=== PATIENT | male | born 1970 | race Caucasian/White ===

== ENCOUNTER 2017-03-22 20:21 | Emergency (ER) | payer OTHER ==
[~2017-03-22] VITALS: Ht 175.3 cm; Wt 75.6 kg
[2017-03-22 20:23] VITALS: TEMP 37.4; Ht 175.3 cm; Wt 75.6 kg
[2017-03-22 22:10] LABS: BASO % 0.3 %; BASO ABS # 0.03 K/uL (0-0.2); COMPLETE YES; EOS % 1.3 %; HEMATOCRIT 40.5 % (42-52); IG% 0.2 %; LYMPH % 20.9 %; LYMPH ABS # 2.32 K/uL (1.2-3.4); MEAN CELL VOLUME 81.8 fL (80-100); MEAN CORPUSCULAR HEMOGLOBIN 28.5 pg (25-34); MEAN CORPUSCULAR HGB CONC 34.8 g/dl (32-36); MEAN PLATELET VOLUME 9.5 fL (7.4-10.4); MONO % 11.1 %; NEUT % 66.2 %; PLATELET COUNT 242 K/uL (130-400); RED BLOOD COUNT 4.95 M/uL (4.7-6.1); WHITE BLOOD COUNT 11.08 K/uL (4.8-10.8)
--- NOTE | 2017-03-22 22:16 | EMERGENCY ROOM VISIT NOTE ---
History First contact with patient: 21:34 Chief Complaint: OTHER COMPLAINT Stated Complaint: BUMPS ON BACK OF TONGUE/WHITE, LT ARM/CHEST PAIN History of Present Illness The patient is a 46 year old male who presents to the Emergency Room with complaints of left-sided chest pain for greater than 1 week. The patient states that he has had a dull throbbing pain in the left side of his chest for greater than 1 week. He has associated shortness of breath and pain in the left arm. He was seen at [facility] emergency department one week ago and had testing done which was all negative. He was told that he likely had a muscle strain. 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 He has been taking aspirin intermittently with some relief. He has difficulty sleeping due to the pain. He reports he does have a cough. He is a smoker. He has no cardiac history or history of hypertension or hyperlipidemia. He is not a diabetic. He states his mother had triple bypass surgery and her age. He denies any personal or family history of blood clots. He is healthy and does not have a primary care provider. He denies nausea, vomiting, abdominal pain, neck pain or fevers. He does report he has had some cold-like symptoms over the past several days. Review of Systems A complete 10 point review of systems was reviewed with the patient with pertinent positives and negatives as per history of present illness. All else were negative. Social History Smoking Status: Current Some Day Smoker Current/Historical Medications Scheduled Aspirin Effervescent (Cora-Gorham), 1 TAB PO PRN Azithromycin (Zithromax), 250 MG PO DAILY Methylprednisolone (Medrol Dosepak), 0 PO DAILY Multivitamins/Minerals (Mvi With Minerals), 1 TAB PO DAILY Physical Exam Vital Signs Date Time Temp Pulse Resp B/P Pulse Ox O2 Delivery O2 Flow Rate FiO2 03/22/17 23:23 100 18 130/73 96 Room Air 03/22/17 20:48 88 03/22/17 20:23 37.4 98 18 129/81 96 Room Air Physical Exam VITALS: Vitals are noted on the nurse's note and reviewed by myself. Vital signs stable. GENERAL: This is a 46-year-old male, in no acute distress, nondiaphoretic, well- developed well-nourished. SKIN: Capillary reflex less than 2 seconds. HEENT: Normocephalic. PERRLA. EOMI. Nares patent. Mucous membranes moist. Neck is supple without nuchal rigidity. HEART: Regular rate and rhythm without murmurs gallops or rubs. LUNGS: Clear to auscultation bilaterally without wheezes, rales or rhonchi. No retractions or accessory muscle use. MUSCULOSKELETAL: No reproducible chest pain on palpation. NEURO: Patient was alert and oriented to person place and time. Medical Decision & Procedures ER Provider Diagnostic Interpretation: SINGLE VIEW CHEST CLINICAL HISTORY: Atypical chest pain. FINDINGS: An AP, portable, upright chest radiograph is obtained. No prior studies are available for comparison at the time of dictation. The cardiomediastinal silhouette is unremarkable. The lungs are hyperinflated. No airspace consolidation, pleural effusion, or pneumothorax is seen. The bony thorax is grossly intact. IMPRESSION: No acute cardiopulmonary abnormality. Laboratory Results 03/22/17 22:00 Red Blood Count 4.95, Mean Corpuscular Volume 81.8, Mean Corpuscular Hemoglobin 28.5, Mean Corpuscular Hemoglobin Concent 34.8, Mean Platelet Volume 9.5, Neutrophils (%) (Auto) 66.2, Lymphocytes (%) (Auto) 20.9, Monocytes (%) (Auto) 11.1, Eosinophils (%) (Auto) 1.3, Basophils (%) (Auto) 0.3, Neutrophils # (Auto ) 7.34, Lymphocytes # (Auto) 2.32, Monocytes # (Auto) 1.23, Eosinophils # (Auto ) 0.14, Basophils # (Auto) 0.03 03/22/17 22:00 Test 03/22/17 22:00 03/22/17 22:06 White Blood Count 11.08 K/uL (4.8-10.8) Red Blood Count 4.95 M/uL (4.7-6.1) Hemoglobin 14.1 g/dL (14.0-18.0) Hematocrit 40.5 % (42-52) Mean Corpuscular Volume 81.8 fL (80-100) Mean Corpuscular Hemoglobin 28.5 pg (25-34) Mean Corpuscular Hemoglobin Concent 34.8 g/dl (32-36) Platelet Count 242 K/uL (130-400) Mean Platelet Volume 9.5 fL (7.4-10.4) Neutrophils (%) (Auto) 66.2 % Lymphocytes (%) (Auto) 20.9 % Monocytes (%) (Auto) 11.1 % Eosinophils (%) (Auto) 1.3 % Basophils (%) (Auto) 0.3 % Neutrophils # (Auto) 7.34 K/uL (1.4-6.5) Lymphocytes # (Auto) 2.32 K/uL (1.2-3.4) Monocytes # (Auto) 1.23 K/uL (0.11-0.59) Eosinophils # (Auto) 0.14 K/uL (0-0.5) Basophils # (Auto) 0.03 K/uL (0-0.2) RDW Standard Deviation 41.3 fL (36.4-46.3) RDW Coefficient of Variation 13.7 % (11.5-14.5) Immature Granulocyte % (Auto) 0.2 % Immature Granulocyte # (Auto) 0.02 K/uL (0.00-0.02) Anion Gap 7.0 mmol/L (3-11) Est Creatinine Clear Calc Drug Dose 118.9 ml/min Estimated GFR () 125.0 Estimated GFR (Non- 107.9 BUN/Creatinine Ratio 19.2 (10-20) Calcium Level 9.1 mg/dl (8.5-10.1) Total Bilirubin 0.5 mg/dl (0.2-1) Aspartate Amino Transf (AST/SGOT) 17 U/L (15-37) Alanine Aminotransferase (ALT/SGPT) 25 U/L (12-78) Alkaline Phosphatase 87 U/L (45-117) Total Creatine Kinase 148 U/L (39-308) Creatine Kinase MB 2.6 ng/ml (0.5-3.6) Creatine Kinase MB Ratio 1.8 (0-3.0) Total Protein 7.2 gm/dl (6.4-8.2) Albumin 3.5 gm/dl (3.4-5.0) Globulin 3.7 gm/dl (2.5-4.0) Albumin/Globulin Ratio 0.9 (0.9-2) Bedside D-Dimer 324 ng/mlFEU (0-450) Bedside Troponin I 0.000 ng/ml (0-0.045) Medications Administered Medications (Trade) Dose Ordered Sig/Aure Route Start Time Stop Time Status Last Admin Dose Admin Albuterol/ Ipratropium (Duoneb) 3 ml NOW STAT INH 03/22/17 22:37 03/22/17 22:38 DC 03/22/17 22:48 3 ML Albuterol (Ventolin Hfa Inhaler) 2 puffs NOW ONCE INH 03/22/17 23:45 03/22/17 23:46 DC 03/22/17 23:44 2 PUFFS Azithromycin (Zithromax Tab) 500 mg NOW ONCE PO 03/22/17 23:45 03/22/17 23:46 DC 03/22/17 23:44 500 MG ECG Indication: chest pain Rate (beats per minute): 84 Rhythm: normal sinus Findings: no acute ischemic change, no ectopy Comparison ECG Date: no prior available Medical Decision Differential diagnosis includes acute coronary syndrome, pulmonary embolism, pneumothorax, pericarditis, myocarditis, endocarditis, anxiety, musculoskeletal pain, GERD, costochondritis, pneumonia, among others. The patient is a 46-year-old male who presents today complaining of chest pain ongoing for greater than 1 week. Labs revealed a mild leukocytosis. No concerning anemia or electrolyte abnormalities. Cardiac biomarkers were negative. Chest x-ray was unremarkable. EKG showed no acute ischemic findings. The patient was given a DuoNeb treatment and stated that he felt much better after this. I feel he likely has an acute bronchitis which may be causing his chest pain as well. He does complain of some left shoulder pain. 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 He will be placed on a Z-Keegan and inhaler. Based on the patient's presentation and work up, I feel the patient is stable for outpatient treatment. The patient was educated to return to the emergency department for any worsening of their current condition or new/concerning symptoms. He will follow up with his primary care provider. Impression Primary Impression: Acute bronchitis Additional Impression: Left sided chest pain Departure Information Dispostion Home / Self-Care Condition GOOD Prescriptions Methylprednisolone (MEDROL DOSEPAK) 4 Mg Keegan 0 PO DAILY, #1 PKT Prov: Sienna Morse ., [place] 03/22/17 Azithromycin (Zithromax) 250 Mg Tab 250 MG PO DAILY for 4 Days, #4 TAB Prov: Sienna Morse PA-C 03/22/17 Referrals No Doctor, Assigned (PCP) Patient Instructions My [facility] Additional Instructions You have been prescribed a Medrol Dosepak. This is a steroid which will help decrease your inflammation. Take the medicine as prescribed. Take the ENTIRE 6 day course of the steroids. You were prescribed Zithromax to be taken daily for 4 days. This is an antibiotic. All antibiotics have the potential to cause diarrhea. Stop this medication and contact a medical provider if you were to develop any significant adverse side effects including: wheezing, shortness of breath, passing out, vomiting, or a diffuse rash. Always take antibiotics as directed and COMPLETE the ENTIRE course regardless of the improvement of your symptoms. Use the Ventolin inhaler as needed for cough/shortness of breath. Follow-up with your primary care provider as scheduled. For pain control, you can use the following [id number] medicines (if >12 yo): - Regular strength (325mg/tab) Tylenol (acetaminophen) 2 tabs every 4-6 hours as needed. Do not exceed 12 tablets in a 24 hour period. Avoid taking more than 4 grams (4000 mg) of Tylenol per day. This includes any other sources of acetaminophen you may take on a regular basis. - Regular strength (200 mg/tab) Advil (ibuprofen) 1-2 tabs every 4-6 hours as needed. Do not exceed a dose of 3200 mg per day. Return to the emergency room with worsening chest pain, worsening shortness of breath or any other new/concerning symptoms. Problem Qualifiers Primary Impression: Acute bronchitis Bronchitis organism: unspecified organism Qualified Codes: J20.9 - Acute bronchitis, unspecified
--- NOTE | 2017-03-22 22:27 | DIAGNOSTIC IMAGING REPORT ---
SINGLE VIEW CHEST CLINICAL HISTORY: Atypical chest pain. FINDINGS: An AP, portable, upright chest radiograph is obtained. No prior studies are available for comparison at the time of dictation. The cardiomediastinal silhouette is unremarkable. The lungs are hyperinflated. No airspace consolidation, pleural effusion, or pneumothorax is seen. The bony thorax is grossly intact. IMPRESSION: No acute cardiopulmonary abnormality. Electronically signed by: Matthew Chapa M.D. 03/22/2017 10:26 PM Dictated Date/Time: 03/22/2017 10:25 PM
[2017-03-22 22:30] LABS: BUN/CREATININE RATIO 19.2 (10-20); CREATININE 0.76 mg/dl (0.60-1.40)
[2017-03-22 22:35] LABS: ALB/GLOB RATIO 0.9 (0.9-2); CKMB/CK RATIO 1.8 (0-3.0)
[2017-03-22] MEDS ORDERED: ALBUT/IPRATROP 3MG/0.5MG NEB 3 ML VIAL INH STA (22:37)
[2017-03-22] MEDS ORDERED: ASPITAB71 PO (23:08)
[2017-03-22] MEDS ORDERED: MULT-513 PO (23:09)
[2017-03-22 23:17] LABS: CALCIUM 9.1 mg/dl (8.5-10.1)
[2017-03-22 23:23] VITALS: BP 130/73; PULSE 100; O2SAT 96
[2017-03-22] MEDS ORDERED: ALBUTEROL HFA 8 GM INHALER INH ONE (23:45)
[2017-03-22] MEDS ORDERED: AZITHROMYCIN 250 MG TAB PO ONE (23:45)
[2017-03-22] MEDS ORDERED: AZIT250T PO (23:51)
[2017-03-22] MEDS ORDERED: METH4PAK PO (23:51)
== END 2017-03-22 23:53 | disposition home or self-care (01) ==
LOC: C.EDB 20:23 → C.EDC 23:53
DX: J20.9 Acute bronchitis, unspecified (principal); F17.210 Nicotine dependence, cigarettes, uncomplicated; Z82.49 Family history of ischemic heart disease and other diseases of the circulatory system; Z79.899 Other long term (current) drug therapy

== ENCOUNTER → 2017-10-06 | Outpatient (CLI) | payer OTHER ==
[~2017-10-06] MED LIST: ASPITAB71 PO; MULT-513 PO
--- NOTE | 2017-10-06 12:36 | DIAGNOSTIC IMAGING REPORT ---
GI SERIES W/AIR ROUTINE CLINICAL HISTORY: 47 years-old Male presenting with AB PAIN. TECHNIQUE: A standard air contrast upper GI series was performed. Spot images of the esophagus and stomach were obtained in multiple obliquities both upright and prone. COMPARISON: Chest x-ray from 03/22/2017. FINDINGS: The patient swallowed barium without difficulty. The esophagus is structurally normal without evidence of intrinsic or extrinsic mass. The esophageal mucosal pattern is normal. No gastroesophageal reflux was elicited by having the patient perform the Valsalva maneuver. The gastroesophageal junction distends normally. The stomach is normal in configuration and demonstrates normal distensibility. No mass or ulceration is identified. There was no evidence of gastritis. The duodenal bulb and sweep are unremarkable. Fluoroscopy dosage (mGy): Not available. Fluoroscopy time: 2.7 minutes. Number of fluoroscopic spot images: 25. IMPRESSION: 1. Normal fluoroscopic examination of the esophagus, stomach, and duodenum. Electronically signed by: Alexis Tripathi M.D. 10/06/2017 12:34 PM Dictated Date/Time: 10/06/2017 12:33 PM
== END | disposition home or self-care (01) ==
LOC: C.RAD 12:01
PROVIDERS: ATTEND Nurse Practitioner
DX: R10.13 Epigastric pain (principal); K21.9 Gastro-esophageal reflux disease without esophagitis